=== PATIENT | male | born 1940 | race Caucasian/White ===

== ENCOUNTER 2017-10-20 19:31 | Inpatient (IN) | payer MEDICARE, OTHER ==
[2017-10-20] MEDS: SODIUM CHLORIDE 0.9% 1L BAG IV* (21:16)
[2017-10-20] MEDS: PIPER-TAZO 3.375 GM IV (PMX) 100 ML IVPB (21:17)
[2017-10-20 21:39] LABS: ADD MAN DIFF? NO
[2017-10-20 21:42] LABS: BASOPHILS % 0.3 % (0.0-2.0); HEMATOCRIT 37.1 % (42.0-52.0); HEMOGLOBIN 12.3 g/dl (14.0-18.0); LYMPHOCYTES % 10.9 % (15.0-51.0); MEAN CORPUSCULAR HEMOGLOBIN 32.7 pg (29.0-33.0); MEAN CORPUSCULAR HGB CONC 33.2 g/dl (32.0-37.0); MEAN CORPUSCULAR VOLUME 98.7 fl (82.0-101.0); MEAN PLATELET VOLUME 11.2 fl (7.4-10.4); MONOCYTE # 0.3 10^3/ul (0.3-0.9); MONOCYTES % 3.5 % (0.0-11.0); NEUTROPHIL # 7.8 10^3/ul (1.6-7.5); NEUTROPHILS % 84.9 % (39.0-77.0); PLATELET COUNT 217 10^3/UL (140-415); RED BLOOD COUNT 3.76 10^6/ul (4.70-6.10); RED CELL DISTRIBUTION WIDTH 13.6 % (11.5-14.5)
[2017-10-20 21:42] LABS: WHITE BLOOD COUNT 9.2 10^3/ul (4.8-10.8)
[2017-10-20 21:51] LABS: ADD UMIC NO; UR ASCORBIC ACID 40 mg/dL (NEGATIVE); UR BILIRUBIN (Dip) NEGATIVE (NEGATIVE); UR BLOOD (Dip) NEGATIVE (NEGATIVE); UR CLARITY SLIGHTLY CLOUDY (CLEAR); UR COLOR YELLOW (YELLOW); UR GLUCOSE (Dip) NEGATIVE (NEGATIVE); UR KETONES (Dip) NEGATIVE (NEGATIVE); UR LEUKOCYTE ESTERASE (Dip) NEGATIVE Leu/ul (NEGATIVE); UR NITRITE (Dip) NEGATIVE (NEGATIVE); UR RBC 1 /HPF (0-5); UR SPECIFIC GRAVITY (Dip) 1.018 (1.003-1.030); UR TOTAL PROTEIN (Dip) NEGATIVE (NEGATIVE); UR UROBILINOGEN (Dip) 1+ mg/dL (NEGATIVE); UR WBC 2 /HPF (0-5)
[2017-10-20 21:59] LABS: LACTIC ACID 2.7 mmol/L (0.5-2.0)
[2017-10-20 22:02] LABS: INR 1.08; PROTIME 14.1 Sec (11.9-14.9); PT RATIO 1.1
[2017-10-20] MEDS: ALBUTEROL 0.083% (NEB) 2.5 MG/3 ML AMP NEB (22:02)
[2017-10-20] MEDS: IPRATROPIUM (NEB) 0.5 MG/2.5 ML AMP NEB (22:02)
[2017-10-20 22:03] LABS: PARTIAL THROMBOPLASTIN TIME 27.5 Sec (25.0-35.0)
[2017-10-20 22:23] LABS: ALANINE AMINOTRANSFERASE 100 IU/L (13-69); ALBUMIN 3.7 g/dl (3.3-4.9); ALBUMIN/GLOBULIN RATIO 0.82; ALKALINE PHOSPHATASE 70 IU/L (42-121); AMYLASE 107 U/L (11-123); ANION GAP 16 (8-16); ASPARTATE AMINO TRANSFERASE 90 IU/L (15-46); BILIRUBIN,INDIRECT 0.6 mg/dl (0-1.1); BILIRUBIN,TOTAL 0.6 mg/dl (0.2-1.3); BLOOD UREA NITROGEN 36 mg/dl (7-20); CALCIUM 9.1 mg/dl (8.4-10.2); CARBON DIOXIDE 22 mmol/L (21-31); CHLORIDE 103 mmol/L (97-110); CREATININE 0.74 mg/dl (0.61-1.24); GLUCOSE 127 mg/dl (70-220); LIPASE 76 U/L (23-300); POTASSIUM 4.8 mmol/L (3.5-5.1); SODIUM 136 mmol/L (135-144); TOTAL PROTEIN 8.2 g/dl (6.1-8.1)
[2017-10-20 22:34] LABS: TROPONIN-I 0.022 ng/ml (0.000-0.120)
[2017-10-20] MEDS: VANCOMYCIN 1 GM (PMX) 250 ML IVPB (22:45)
[2017-10-20] MEDS: ACETAMINOPHEN 650 MG SUPP PR (23:28)
[2017-10-20 23:44] LABS: LACTIC ACID 3.1 mmol/L (0.5-2.0)
[2017-10-21 03:48] LABS: LACTIC ACID 4.9 mmol/L (0.5-2.0)
[2017-10-21] MEDS: SOD CHLORIDE 0.9% 1,000 ML IV (04:07)
[2017-10-21] MEDS ORDERED: morphine 2 MG INJ IV (09:30)
[2017-10-21] MEDS ORDERED: LORAZEPAM 2 MG INJ IV (09:30)
[2017-10-21] MEDS ORDERED: NACL 0.9% 3 ML SYG IV (09:30)
[2017-10-21] MEDS ORDERED: ALBUTEROL/IPRATROPIUM (NEB) 3 ML AMP HHN (09:30)
[2017-10-21] MEDS: LEVOFLOXACIN 500MG/D5W (PMX) 100 ML IVPB (09:41)
[2017-10-21] MEDS: DEXTROSE 5%-0.45% NACL 1,000 ML IV ×2 (09:42→22:57)
[2017-10-21] MEDS: FAMOTIDINE 20 MG INJ IV ×2 (09:42→20:14)
[2017-10-21 14:21] LABS: LACTIC ACID 1.2 mmol/L (0.5-2.0)
[2017-10-21] MEDS ORDERED: HEPARIN 5,000 UNIT/0.5 ML VIAL SC (21:00)
[2017-10-21] MEDS: CEFEPIME 1GM/50 ML (PMX) 50 ML IVPB (22:57)
[2017-10-21] MEDS ORDERED: VANCOMYCIN IV PER PHARMACY XX (23:00)
[2017-10-22] MEDS: VANCOMYCIN 1.25 GM in SOD CHLORIDE 0.9% 250 ML IVPB ×2 (06:09→17:52)
[2017-10-22] MEDS: FAMOTIDINE 20 MG INJ IV ×2 (09:26→20:00)
[2017-10-22] MEDS: CEFEPIME 1GM/50 ML (PMX) 50 ML IVPB ×2 (09:26→20:00)
[2017-10-22] MEDS: DEXTROSE 5%-0.45% NACL 1,000 ML IV ×2 (11:43→22:42)
[2017-10-22] MEDS: ACETAMINOPHEN 650MG/20.3ML CUP GTB (23:44)
[2017-10-23] MEDS: VANCOMYCIN 1.25 GM in SOD CHLORIDE 0.9% 250 ML IVPB ×2 (05:35→22:44)
[2017-10-23 06:04] LABS: ADD MAN DIFF? NO
[2017-10-23 06:16] LABS: BASOPHILS % 0.5 % (0.0-2.0); EOSINOPHILS # 0.2 10^3/ul (0.0-0.5); EOSINOPHILS % 2.9 % (0.0-7.0); HEMOGLOBIN 9.9 g/dl (14.0-18.0); LYMPHOCYTES # 1.2 10^3/ul (0.8-2.9); LYMPHOCYTES % 18.2 % (15.0-51.0); MEAN CORPUSCULAR HEMOGLOBIN 33.4 pg (29.0-33.0); MEAN CORPUSCULAR VOLUME 101.4 fl (82.0-101.0); MEAN PLATELET VOLUME 11.1 fl (7.4-10.4); MONOCYTE # 0.6 10^3/ul (0.3-0.9); MONOCYTES % 9.5 % (0.0-11.0); NEUTROPHIL # 4.5 10^3/ul (1.6-7.5); NEUTROPHILS % 68.4 % (39.0-77.0); PLATELET COUNT 141 10^3/UL (140-415); RED BLOOD COUNT 2.96 10^6/ul (4.70-6.10); RED CELL DISTRIBUTION WIDTH 12.9 % (11.5-14.5)
[2017-10-23 06:16] LABS: WHITE BLOOD COUNT 6.5 10^3/ul (4.8-10.8)
[2017-10-23 06:49] LABS: ANION GAP 9 (8-16); BLOOD UREA NITROGEN 23 mg/dl (7-20); CALCIUM 8.3 mg/dl (8.4-10.2); CARBON DIOXIDE 25 mmol/L (21-31); CHLORIDE 112 mmol/L (97-110); CREATININE 0.69 mg/dl (0.61-1.24); GLUCOSE 98 mg/dl (70-220); MAGNESIUM 1.9 mg/dl (1.7-2.5); PHOSPHORUS 2.4 mg/dl (2.5-4.9); POTASSIUM 3.7 mmol/L (3.5-5.1); SODIUM 142 mmol/L (135-144)
[2017-10-23] MEDS: FAMOTIDINE 20 MG INJ IV ×2 (08:31→20:09)
[2017-10-23] MEDS: CEFEPIME 1GM/50 ML (PMX) 50 ML IVPB ×2 (08:31→20:09)
[2017-10-23] MEDS: ENOXAPARIN 40 MG/0.4 ML SYG SC (09:27)
[2017-10-23] MEDS: DEXTROSE 5%-0.45% NACL 1,000 ML IV (14:47)
[2017-10-23] MEDS ORDERED: morphine LIQ (10 MG/5 ML) CUP GTB (15:00)
[2017-10-24] MEDS: DEXTROSE 5%-0.45% NACL 1,000 ML IV ×2 (03:43→06:32)
[2017-10-24] MEDS: VANCOMYCIN 1.25 GM in SOD CHLORIDE 0.9% 250 ML IVPB ×2 (07:39→17:36)
[2017-10-24] MEDS: FAMOTIDINE 20 MG INJ IV (08:00)
[2017-10-24] MEDS: CEFEPIME 1GM/50 ML (PMX) 50 ML IVPB ×2 (08:00→20:10)
[2017-10-24] MEDS: ENOXAPARIN 40 MG/0.4 ML SYG SC (08:15)
[2017-10-25] MEDS: VANCOMYCIN 1.25 GM in SOD CHLORIDE 0.9% 250 ML IVPB ×2 (06:30→17:53)
[2017-10-25] MEDS: CEFEPIME 1GM/50 ML (PMX) 50 ML IVPB ×2 (08:39→20:02)
[2017-10-25] MEDS: ENOXAPARIN 40 MG/0.4 ML SYG SC (08:46)
[2017-10-25] MEDS: BALSAM PERU/CASTOR OIL 60 GM TUBE TOP (20:05)
[2017-10-26] MEDS: VANCOMYCIN 1.25 GM in SOD CHLORIDE 0.9% 250 ML IVPB (05:18)
[2017-10-26] MEDS: CEFEPIME 1GM/50 ML (PMX) 50 ML IVPB (08:22)
[2017-10-26] MEDS: BALSAM PERU/CASTOR OIL 60 GM TUBE TOP (08:26)
[2017-10-26] MEDS: ENOXAPARIN 40 MG/0.4 ML SYG SC (08:42)
== END 2017-10-26 16:09 | DRG 871 ==
LOC: E/R 19:31 → TEL 10-21 03:57
PROVIDERS: Internal Medicine
DX: A41.9 Sepsis, unspecified organism (principal); J18.9 Pneumonia, unspecified organism; G93.41 Metabolic encephalopathy; J96.01 Acute respiratory failure with hypoxia; N39.0 Urinary tract infection, site not specified; I10 Essential (primary) hypertension; E78.5 Hyperlipidemia, unspecified; K21.9 Gastro-esophageal reflux disease without esophagitis; I25.10 Atherosclerotic heart disease of native coronary artery without angina pectoris; F03.90 Unspecified dementia, unspecified severity, without behavioral disturbance, psychotic disturbance, mood disturbance, and anxiety; B96.20 Unspecified Escherichia coli [E. coli] as the cause of diseases classified elsewhere; Z66 Do not resuscitate
CPT/HCPCS: 71045; 80048; 80053; 80202; 81001; 81003; 82150; 83605; 83690; 83735; 84100; 84484; 85025; 85610; 85730; 86850; 86900; 86901; 87040; 87081; 87086; 93005; 94664; 96365; 96375; 97164; 99291-25

== ENCOUNTER → 2017-12-07 | Outpatient (CLI) | payer MEDICARE, OTHER | END | disposition home or self-care (01) | LOC: NUC 10:13 | DX: K80.80 Other cholelithiasis without obstruction (principal) | CPT/HCPCS: 78226 ==

== ENCOUNTER 2018-05-16 14:36 | Inpatient (IN) | payer MEDICARE, OTHER ==
[2018-05-16 15:08] LABS: ADD MAN DIFF? NO
[2018-05-16 15:30] LABS: WHITE BLOOD COUNT 15.2 10^3/ul (4.8-10.8)
[2018-05-16 15:30] LABS: BASOPHILS % 0.2 % (0.0-2.0); EOSINOPHILS % 0.1 % (0.0-7.0); HEMATOCRIT 31.9 % (42.0-52.0); HEMOGLOBIN 10.2 g/dl (14.0-18.0); LYMPHOCYTES # 1.5 10^3/ul (0.8-2.9); LYMPHOCYTES % 9.7 % (15.0-51.0); MEAN CORPUSCULAR HEMOGLOBIN 31.9 pg (29.0-33.0); MEAN CORPUSCULAR VOLUME 99.7 fl (82.0-101.0); MEAN PLATELET VOLUME 11.5 fl (7.4-10.4); MONOCYTE # 1.3 10^3/ul (0.3-0.9); MONOCYTES % 8.6 % (0.0-11.0); NEUTROPHIL # 12.3 10^3/ul (1.6-7.5); NEUTROPHILS % 80.9 % (39.0-77.0); PLATELET COUNT 379 10^3/UL (140-415); RED CELL DISTRIBUTION WIDTH 13.1 % (11.5-14.5)
[2018-05-16 15:34] LABS: ALANINE AMINOTRANSFERASE 30 IU/L (13-69); ALBUMIN 3.2 g/dl (3.3-4.9); ALBUMIN/GLOBULIN RATIO 0.88; ALKALINE PHOSPHATASE 93 IU/L (42-121); ANION GAP 12 (5-13); ASPARTATE AMINO TRANSFERASE 28 IU/L (15-46); BILIRUBIN,INDIRECT 0.3 mg/dl (0-1.1); BILIRUBIN,TOTAL 0.3 mg/dl (0.2-1.3); BLOOD UREA NITROGEN 32 mg/dl (7-20); CALCIUM 8.7 mg/dl (8.4-10.2); CARBON DIOXIDE 26 mmol/L (21-31); CHLORIDE 102 mmol/L (97-110); CREATININE 0.65 mg/dl (0.61-1.24); GLUCOSE 145 mg/dl (70-220); INR 1.07; MAGNESIUM 2.4 mg/dl (1.7-2.5); PARTIAL THROMBOPLASTIN TIME 30.2 Sec (23.0-35.0); POTASSIUM 4.4 mmol/L (3.5-5.1); PT RATIO 1.1; SODIUM 140 mmol/L (135-144); TOTAL PROTEIN 6.8 g/dl (6.1-8.1)
[2018-05-16] MEDS: SODIUM CHLORIDE 0.9% 1L BAG IV* (15:36)
[2018-05-16 15:37] LABS: ADD UMIC YES; UR ASCORBIC ACID 40 mg/dL (NEGATIVE); UR BILIRUBIN (Dip) NEGATIVE (NEGATIVE); UR BLOOD (Dip) NEGATIVE (NEGATIVE); UR CLARITY SLIGHTLY CLOUDY (CLEAR); UR COLOR YELLOW (YELLOW); UR GLUCOSE (Dip) NEGATIVE (NEGATIVE); UR KETONES (Dip) NEGATIVE (NEGATIVE); UR LEUKOCYTE ESTERASE (Dip) NEGATIVE Leu/ul (NEGATIVE); UR MUCUS FEW /HPF (NONE SEEN); UR NITRITE (Dip) NEGATIVE (NEGATIVE); UR RBC 0 /HPF (0-5); UR SPECIFIC GRAVITY (Dip) 1.023 (1.003-1.030); UR TOTAL PROTEIN (Dip) 1+ mg/dl (NEGATIVE); UR UROBILINOGEN (Dip) NEGATIVE (NEGATIVE); UR WBC 0 /HPF (0-5)
[2018-05-16] MEDS: PIPER-TAZO 3.375 GM IV (PMX) 100 ML IVPB (15:38)
[2018-05-16] MEDS: LIDOCAINE 1% (MPF) 5 ML VIAL SC (15:43)
[2018-05-16 15:45] LABS: TROPONIN-I < 0.012 ng/ml (0.000-0.120)
[2018-05-16] MEDS: VANCOMYCIN 1 GM (PMX) 250 ML IVPB (17:18)
[2018-05-16] MEDS ORDERED: ZOLPIDEM 5 MG TAB PO (18:00)
[2018-05-16] MEDS ORDERED: HYDROmorphONE 0.5 MG/0.5 ML SYG IV (18:00)
[2018-05-16] MEDS ORDERED: ACETAMINOPHEN 325 MG TAB PO (18:00)
[2018-05-16] MEDS ORDERED: ONDANSETRON 4 MG INJ IV (18:00)
[2018-05-16] MEDS ORDERED: HYDROCODONE/APAP (5/325) TAB PO (18:00)
[2018-05-16] MEDS ORDERED: DOCUSATE SODIUM 100 MG CAP PO (18:00)
[2018-05-16] MEDS ORDERED: NACL 0.9% 3 ML SYG IV (18:00)
[2018-05-16] MEDS: DILTIAZEM 25 MG INJ IV (18:20)
[2018-05-16] MEDS ORDERED: ACETAMINOPHEN 650MG/20.3ML CUP GTB (18:30)
[2018-05-16] MEDS ORDERED: VANCOMYCIN IV PER PHARMACY XX (18:30)
[2018-05-16 19:33] LABS: LACTIC ACID 3.2 mmol/L (0.5-2.0)
[2018-05-16] MEDS: D5W-0.45 NACL + KCL 20 MEQ 1,000 ML IV (19:41)
[2018-05-16] MEDS ORDERED: NON-FORMULARY/PATIENT OWN MED (Arginine/Ascorbate Sod/Vite AC (Arginaid Powder) 1 EACH) GTB (21:00)
[2018-05-16] MEDS: ASCORBIC ACID 500 MG TAB GTB (21:45)
[2018-05-16 22:07] LABS: LACTIC ACID 1.5 mmol/L (0.5-2.0)
[2018-05-17] MEDS: PIPER-TAZO 3.375 GM IV (PMX) 100 ML IVPB ×4 (00:20→18:14)
[2018-05-17 00:31] LABS: LACTIC ACID 1.8 mmol/L (0.5-2.0)
[2018-05-17] MEDS: VANCOMYCIN 1 GM 250 ML IVPB ×2 (03:28→16:07)
[2018-05-17] MEDS: D5W-0.45 NACL + KCL 20 MEQ 1,000 ML IV ×3 (03:29→13:26)
[2018-05-17 05:19] LABS: ADD MAN DIFF? NO
[2018-05-17 05:24] LABS: WHITE BLOOD COUNT 9.4 10^3/ul (4.8-10.8)
[2018-05-17 05:24] LABS: BASOPHILS % 0.3 % (0.0-2.0); EOSINOPHILS # 0.2 10^3/ul (0.0-0.5); EOSINOPHILS % 1.7 % (0.0-7.0); HEMATOCRIT 26.5 % (42.0-52.0); HEMOGLOBIN 8.5 g/dl (14.0-18.0); LYMPHOCYTES # 1.1 10^3/ul (0.8-2.9); LYMPHOCYTES % 11.9 % (15.0-51.0); MEAN CORPUSCULAR HEMOGLOBIN 31.7 pg (29.0-33.0); MEAN CORPUSCULAR HGB CONC 32.1 g/dl (32.0-37.0); MEAN CORPUSCULAR VOLUME 98.9 fl (82.0-101.0); MEAN PLATELET VOLUME 10.9 fl (7.4-10.4); MONOCYTE # 0.9 10^3/ul (0.3-0.9); MONOCYTES % 9.8 % (0.0-11.0); NEUTROPHIL # 7.1 10^3/ul (1.6-7.5); NEUTROPHILS % 75.9 % (39.0-77.0); PLATELET COUNT 324 10^3/UL (140-415); RED BLOOD COUNT 2.68 10^6/ul (4.70-6.10); RED CELL DISTRIBUTION WIDTH 13.2 % (11.5-14.5)
[2018-05-17 05:53] LABS: ANION GAP 8 (5-13); BLOOD UREA NITROGEN 22 mg/dl (7-20); CALCIUM 8.2 mg/dl (8.4-10.2); CARBON DIOXIDE 24 mmol/L (21-31); CHLORIDE 109 mmol/L (97-110); CREATININE 0.63 mg/dl (0.61-1.24); GLUCOSE 107 mg/dl (70-220); MAGNESIUM 2.2 mg/dl (1.7-2.5); PHOSPHORUS 2.6 mg/dl (2.5-4.9); POTASSIUM 4.1 mmol/L (3.5-5.1); SODIUM 141 mmol/L (135-144)
[2018-05-17 06:51] LABS: HEMOGLOBIN A1C 5.5 % (0-5.9)
[2018-05-17] MEDS: FERROUS SULFATE 220 MG/5 ML ML GTB (09:00)
[2018-05-17] MEDS: FUROSEMIDE 40 MG/4 ML CUP GTB (09:00)
[2018-05-17] MEDS: ASCORBIC ACID 500 MG TAB GTB ×2 (10:06→20:40)
[2018-05-17] MEDS: ZINC SULFATE 220 MG CAP GTB (10:06)
[2018-05-17] MEDS: MULTIVITAMINS/MINERALS TAB GTB (10:06)
[2018-05-17] MEDS ORDERED: LEVALBUTEROL (NEB) 0.63 MG/3 ML AMP HHN (10:30)
[2018-05-17] MEDS ORDERED: ALBUTEROL/IPRATROPIUM (NEB) 3 ML AMP HHN ×2 (10:30)
[2018-05-17] MEDS: LEVALBUTEROL (NEB) 0.63 MG/3 ML AMP HHN (10:54)
[2018-05-17] MEDS: DILTIAZEM-D5W 125MG/125ML DRIP 125 ML IV ×4 (11:22→17:51)
[2018-05-17] MEDS: DILTIAZEM 25 MG INJ IV (11:22)
[2018-05-17] MEDS ORDERED: FUROSEMIDE 40 MG/4 ML CUP GTB (13:00)
[2018-05-17] MEDS: FERROUS SULFATE 60 MG/ML 5ML CUP GTB (13:23)
[2018-05-17] MEDS: METHYLPREDNISOLONE 40 MG INJ IV ×2 (13:23→20:40)
[2018-05-17 15:11] LABS: TROPONIN-I < 0.012 ng/ml (0.000-0.120)
[2018-05-17] MEDS: FUROSEMIDE (8 MG/ML PO SYG) GTB (16:07)
[2018-05-17] MEDS: DIGOXIN 500 MCG INJ IV ×2 (16:19→22:29)
[2018-05-17] MEDS: COLLAGENASE 5 GM (UD JAR) TOP (20:47)
[2018-05-17] MEDS ORDERED: DILTIAZEM 25 MG INJ IV (22:30)
[2018-05-17] MEDS: AMIODARONE 150MG/D5W BOLUS 100 ML IV (22:58)
[2018-05-17] MEDS: AMIODARONE 900 MG in DEXTROSE 5% 482 ML IV (23:15)
[2018-05-18] MEDS: D5W-0.45 NACL + KCL 20 MEQ 1,000 ML IV ×4 (00:44→22:03)
[2018-05-18] MEDS: PIPER-TAZO 3.375 GM IV (PMX) 100 ML IVPB ×5 (00:44→23:19)
[2018-05-18] MEDS: ALBUTEROL/IPRATROPIUM (NEB) 3 ML AMP HHN ×2 (01:07→10:19)
[2018-05-18] MEDS: VANCOMYCIN 1 GM 250 ML IVPB (04:27)
[2018-05-18 06:03] LABS: CREATINE KINASE 51 IU/L (23-200)
[2018-05-18 06:16] LABS: ANION GAP 11 (5-13); BLOOD UREA NITROGEN 18 mg/dl (7-20); CALCIUM 8.7 mg/dl (8.4-10.2); CARBON DIOXIDE 24 mmol/L (21-31); CHLORIDE 106 mmol/L (97-110); CREATININE 0.59 mg/dl (0.61-1.24); GLUCOSE 192 mg/dl (70-220); MAGNESIUM 2.2 mg/dl (1.7-2.5); PHOSPHORUS 2.8 mg/dl (2.5-4.9); POTASSIUM 4.4 mmol/L (3.5-5.1); SODIUM 141 mmol/L (135-144); TROPONIN-I < 0.012 ng/ml (0.000-0.120)
[2018-05-18 06:17] LABS: B-TYPE NATRIURETIC PEPTIDE 8270 PG/ML (0-450)
[2018-05-18 06:49] LABS: CK INDEX 4.4; CK-MB 2.22 ng/ml (0.0-2.4)
[2018-05-18] MEDS: METHYLPREDNISOLONE 40 MG INJ IV ×3 (07:05→21:50)
[2018-05-18] MEDS: ZINC SULFATE 220 MG CAP GTB (08:21)
[2018-05-18] MEDS: FERROUS SULFATE 60 MG/ML 5ML CUP GTB (08:21)
[2018-05-18] MEDS: ASPIRIN (EC) 81 MG TAB PO (08:21)
[2018-05-18] MEDS: ASCORBIC ACID 500 MG TAB GTB ×2 (08:21→21:50)
[2018-05-18] MEDS: COLLAGENASE 5 GM (UD JAR) TOP (08:21)
[2018-05-18] MEDS: MULTIVITAMINS/MINERALS TAB GTB (08:21)
[2018-05-18] MEDS: FUROSEMIDE (8 MG/ML PO SYG) GTB (08:25)
[2018-05-18] MEDS: FUROSEMIDE 40 MG INJ IV (11:41)
[2018-05-18 15:54] LABS: VANCOMYCIN,TROUGH 22.3 ug/ml (10.0-20.0)
[2018-05-18] MEDS: DIGOXIN 500 MCG INJ IV (20:32)
[2018-05-18] MEDS: FUROSEMIDE 20 MG INJ IV (20:32)
[2018-05-18] MEDS: DILTIAZEM 30 MG TAB GTB (21:50)
[2018-05-19] MEDS: VANCOMYCIN 1.25 GM in SOD CHLORIDE 0.9% 250 ML IVPB ×2 (00:41→23:37)
[2018-05-19] MEDS: PIPER-TAZO 3.375 GM IV (PMX) 100 ML IVPB ×4 (05:46→23:37)
[2018-05-19] MEDS: METHYLPREDNISOLONE 40 MG INJ IV (05:46)
[2018-05-19] MEDS: DILTIAZEM 30 MG TAB GTB ×3 (05:47→22:01)
[2018-05-19 06:13] LABS: ADD MAN DIFF? NO
[2018-05-19 06:21] LABS: HEMOGLOBIN 8.9 g/dl (14.0-18.0); LYMPHOCYTES # 0.8 10^3/ul (0.8-2.9); LYMPHOCYTES % 8.2 % (15.0-51.0); MEAN CORPUSCULAR HEMOGLOBIN 31.8 pg (29.0-33.0); MEAN CORPUSCULAR HGB CONC 31.8 g/dl (32.0-37.0); MEAN PLATELET VOLUME 10.5 fl (7.4-10.4); MONOCYTE # 0.4 10^3/ul (0.3-0.9); MONOCYTES % 3.8 % (0.0-11.0); NEUTROPHIL # 8.6 10^3/ul (1.6-7.5); NEUTROPHILS % 87.4 % (39.0-77.0); PLATELET COUNT 377 10^3/UL (140-415); RED CELL DISTRIBUTION WIDTH 12.9 % (11.5-14.5)
[2018-05-19 06:21] LABS: WHITE BLOOD COUNT 9.9 10^3/ul (4.8-10.8)
[2018-05-19 06:56] LABS: DIGOXIN 0.8 ng/ml (1.0-2.0)
[2018-05-19 07:04] LABS: ANION GAP 11 (5-13); BLOOD UREA NITROGEN 24 mg/dl (7-20); CALCIUM 8.7 mg/dl (8.4-10.2); CARBON DIOXIDE 26 mmol/L (21-31); CHLORIDE 106 mmol/L (97-110); CREATININE 0.74 mg/dl (0.61-1.24); GLUCOSE 147 mg/dl (70-220); MAGNESIUM 2.2 mg/dl (1.7-2.5); PHOSPHORUS 3.8 mg/dl (2.5-4.9); POTASSIUM 3.8 mmol/L (3.5-5.1); SODIUM 143 mmol/L (135-144)
[2018-05-19] MEDS: ASCORBIC ACID 500 MG TAB GTB ×2 (08:55→20:15)
[2018-05-19] MEDS: MULTIVITAMINS/MINERALS TAB GTB (08:55)
[2018-05-19] MEDS: ZINC SULFATE 220 MG CAP GTB (08:55)
[2018-05-19] MEDS: FERROUS SULFATE 60 MG/ML 5ML CUP GTB (08:55)
[2018-05-19] MEDS: ASPIRIN (EC) 81 MG TAB PO (08:56)
[2018-05-19] MEDS: FUROSEMIDE 20 MG INJ IV (09:34)
[2018-05-19] MEDS: COLLAGENASE 5 GM (UD JAR) TOP (09:34)
[2018-05-19] MEDS: DIGOXIN 500 MCG INJ IV (12:41)
[2018-05-20] MEDS: DILTIAZEM 30 MG TAB GTB ×3 (05:26→22:24)
[2018-05-20] MEDS: PIPER-TAZO 3.375 GM IV (PMX) 100 ML IVPB ×4 (05:26→23:39)
[2018-05-20 05:58] LABS: ADD MAN DIFF? NO
[2018-05-20 06:10] LABS: WHITE BLOOD COUNT 10.5 10^3/ul (4.8-10.8)
[2018-05-20 06:10] LABS: BASOPHILS % 0.1 % (0.0-2.0); HEMATOCRIT 27.7 % (42.0-52.0); LYMPHOCYTES # 1.1 10^3/ul (0.8-2.9); LYMPHOCYTES % 10.6 % (15.0-51.0); MEAN CORPUSCULAR HGB CONC 32.5 g/dl (32.0-37.0); MEAN CORPUSCULAR VOLUME 98.6 fl (82.0-101.0); MEAN PLATELET VOLUME 10.3 fl (7.4-10.4); MONOCYTES % 9.3 % (0.0-11.0); NEUTROPHIL # 8.3 10^3/ul (1.6-7.5); NEUTROPHILS % 79.2 % (39.0-77.0); PLATELET COUNT 370 10^3/UL (140-415); RED BLOOD COUNT 2.81 10^6/ul (4.70-6.10)
[2018-05-20 06:36] LABS: DIGOXIN 0.6 ng/ml (1.0-2.0)
[2018-05-20 06:42] LABS: ALANINE AMINOTRANSFERASE 63 IU/L (13-69); ALBUMIN 2.6 g/dl (3.3-4.9); ALBUMIN/GLOBULIN RATIO 0.74; ALKALINE PHOSPHATASE 89 IU/L (42-121); ANION GAP 8 (5-13); ASPARTATE AMINO TRANSFERASE 46 IU/L (15-46); BILIRUBIN,INDIRECT 0.1 mg/dl (0-1.1); BILIRUBIN,TOTAL 0.1 mg/dl (0.2-1.3); BLOOD UREA NITROGEN 34 mg/dl (7-20); CALCIUM 8.5 mg/dl (8.4-10.2); CARBON DIOXIDE 27 mmol/L (21-31); CHLORIDE 108 mmol/L (97-110); CREATININE 0.79 mg/dl (0.61-1.24); GLUCOSE 151 mg/dl (70-220); POTASSIUM 3.8 mmol/L (3.5-5.1); SODIUM 143 mmol/L (135-144); TOTAL PROTEIN 6.1 g/dl (6.1-8.1)
[2018-05-20 06:44] LABS: B-TYPE NATRIURETIC PEPTIDE 15000 PG/ML (0-450)
[2018-05-20 07:11] LABS: MAGNESIUM 2.2 mg/dl (1.7-2.5)
[2018-05-20 07:11] LABS: PHOSPHORUS 3.1 mg/dl (2.5-4.9)
[2018-05-20] MEDS: FUROSEMIDE 20 MG INJ IV ×3 (08:41→17:07)
[2018-05-20] MEDS: ASPIRIN (EC) 81 MG TAB PO (08:41)
[2018-05-20] MEDS: ASCORBIC ACID 500 MG TAB GTB ×2 (08:41→20:25)
[2018-05-20] MEDS: ZINC SULFATE 220 MG CAP GTB (08:41)
[2018-05-20] MEDS: COLLAGENASE 5 GM (UD JAR) TOP (08:41)
[2018-05-20] MEDS: FERROUS SULFATE 60 MG/ML 5ML CUP GTB (08:41)
[2018-05-20] MEDS: MULTIVITAMINS/MINERALS TAB GTB (08:41)
[2018-05-20] MEDS: DIGOXIN 500 MCG INJ IV (14:15)
[2018-05-20] MEDS: VANCOMYCIN 1.25 GM in SOD CHLORIDE 0.9% 250 ML IVPB (23:30)
[2018-05-21] MEDS ORDERED: VITAMIN A & D 5 GM OINT PACKET TOP (05:14)
[2018-05-21 05:22] LABS: ADD MAN DIFF? NO
[2018-05-21] MEDS: DILTIAZEM 30 MG TAB GTB ×3 (05:24→22:00)
[2018-05-21] MEDS: PIPER-TAZO 3.375 GM IV (PMX) 100 ML IVPB ×3 (05:25→18:09)
[2018-05-21] MEDS: DOCUSATE SODIUM 10 MG/ML (10ML CUP) GTB (05:25)
[2018-05-21] MEDS: LANSOPRAZOLE 30 MG CAP GTB (05:25)
[2018-05-21] MEDS: FUROSEMIDE 20 MG INJ IV ×2 (05:26→18:07)
[2018-05-21 05:41] LABS: BASOPHILS % 0.1 % (0.0-2.0); EOSINOPHILS % 0.4 % (0.0-7.0); HEMATOCRIT 32.4 % (42.0-52.0); HEMOGLOBIN 10.5 g/dl (14.0-18.0); LYMPHOCYTES # 1.9 10^3/ul (0.8-2.9); LYMPHOCYTES % 18.8 % (15.0-51.0); MEAN CORPUSCULAR HEMOGLOBIN 31.4 pg (29.0-33.0); MEAN CORPUSCULAR HGB CONC 32.4 g/dl (32.0-37.0); MONOCYTE # 0.9 10^3/ul (0.3-0.9); MONOCYTES % 8.4 % (0.0-11.0); NEUTROPHIL # 7.3 10^3/ul (1.6-7.5); NEUTROPHILS % 71.3 % (39.0-77.0); NUCLEATED RED BLOOD CELLS% 0.2 /100WBC (0.0-0.0); PLATELET COUNT 414 10^3/UL (140-415); RED BLOOD COUNT 3.34 10^6/ul (4.70-6.10); RED CELL DISTRIBUTION WIDTH 12.8 % (11.5-14.5)
[2018-05-21 05:41] LABS: WHITE BLOOD COUNT 10.3 10^3/ul (4.8-10.8)
[2018-05-21 06:10] LABS: ALANINE AMINOTRANSFERASE 94 IU/L (13-69); ALBUMIN 2.8 g/dl (3.3-4.9); ALBUMIN/GLOBULIN RATIO 0.84; ALKALINE PHOSPHATASE 89 IU/L (42-121); ANION GAP 10 (5-13); ASPARTATE AMINO TRANSFERASE 58 IU/L (15-46); BLOOD UREA NITROGEN 32 mg/dl (7-20); CALCIUM 8.5 mg/dl (8.4-10.2); CARBON DIOXIDE 30 mmol/L (21-31); CHLORIDE 102 mmol/L (97-110); CREATININE 0.76 mg/dl (0.61-1.24); GLUCOSE 119 mg/dl (70-220); POTASSIUM 3.3 mmol/L (3.5-5.1); SODIUM 142 mmol/L (135-144); TOTAL PROTEIN 6.1 g/dl (6.1-8.1)
[2018-05-21 06:13] LABS: B-TYPE NATRIURETIC PEPTIDE 9650 PG/ML (0-450)
[2018-05-21 07:13] LABS: PHOSPHORUS 2.8 mg/dl (2.5-4.9)
[2018-05-21 07:13] LABS: MAGNESIUM 2.1 mg/dl (1.7-2.5)
[2018-05-21] MEDS: ZINC SULFATE 220 MG CAP GTB (09:00)
[2018-05-21] MEDS: FERROUS SULFATE 60 MG/ML 5ML CUP GTB (09:00)
[2018-05-21] MEDS: ASPIRIN (EC) 81 MG TAB PO (09:00)
[2018-05-21] MEDS: MULTIVITAMINS/MINERALS TAB GTB (09:00)
[2018-05-21] MEDS: ASCORBIC ACID 500 MG TAB GTB ×2 (09:00→21:03)
[2018-05-21] MEDS ORDERED: POTASSIUM CHLORIDE (SR) 20 MEQ TAB PO (09:03)
[2018-05-21] MEDS: COLLAGENASE 5 GM (UD JAR) TOP (09:04)
[2018-05-21] MEDS: POTASSIUM CHLORIDE 100 ML IVPB ×2 (10:35→13:15)
[2018-05-21] MEDS: DIGOXIN 500 MCG INJ IV (14:15)
[2018-05-21 23:42] LABS: VANCOMYCIN,TROUGH 17.2 ug/ml (10.0-20.0)
[2018-05-22] MEDS: PIPER-TAZO 3.375 GM IV (PMX) 100 ML IVPB ×4 (00:16→18:24)
[2018-05-22] MEDS: LANSOPRAZOLE 30 MG CAP GTB (05:13)
[2018-05-22] MEDS: FUROSEMIDE 20 MG INJ IV ×2 (05:13→18:23)
[2018-05-22] MEDS: DILTIAZEM 30 MG TAB GTB ×3 (05:14→22:43)
[2018-05-22 05:40] LABS: ADD MAN DIFF? NO
[2018-05-22 05:50] LABS: BASOPHILS % 0.1 % (0.0-2.0); EOSINOPHILS # 0.4 10^3/ul (0.0-0.5); EOSINOPHILS % 3.6 % (0.0-7.0); HEMATOCRIT 32.4 % (42.0-52.0); HEMOGLOBIN 10.7 g/dl (14.0-18.0); LYMPHOCYTES % 20.6 % (15.0-51.0); MEAN CORPUSCULAR HEMOGLOBIN 31.8 pg (29.0-33.0); MEAN CORPUSCULAR VOLUME 96.1 fl (82.0-101.0); MEAN PLATELET VOLUME 9.8 fl (7.4-10.4); MONOCYTE # 0.7 10^3/ul (0.3-0.9); MONOCYTES % 7.2 % (0.0-11.0); NEUTROPHIL # 6.5 10^3/ul (1.6-7.5); NUCLEATED RED BLOOD CELLS% 0.2 /100WBC (0.0-0.0); PLATELET COUNT 419 10^3/UL (140-415); RED BLOOD COUNT 3.37 10^6/ul (4.70-6.10)
[2018-05-22 05:50] LABS: WHITE BLOOD COUNT 9.6 10^3/ul (4.8-10.8)
[2018-05-22 06:25] LABS: ANION GAP 11 (5-13); BLOOD UREA NITROGEN 28 mg/dl (7-20); CALCIUM 8.4 mg/dl (8.4-10.2); CARBON DIOXIDE 26 mmol/L (21-31); CHLORIDE 103 mmol/L (97-110); CREATININE 0.81 mg/dl (0.61-1.24); GLUCOSE 95 mg/dl (70-220); MAGNESIUM 2.1 mg/dl (1.7-2.5); PHOSPHORUS 3.2 mg/dl (2.5-4.9); POTASSIUM 3.7 mmol/L (3.5-5.1); SODIUM 140 mmol/L (135-144)
[2018-05-22] MEDS: ASPIRIN (EC) 81 MG TAB PO (09:27)
[2018-05-22] MEDS: ZINC SULFATE 220 MG CAP GTB (09:27)
[2018-05-22] MEDS: FERROUS SULFATE 60 MG/ML 5ML CUP GTB (09:27)
[2018-05-22] MEDS: ASCORBIC ACID 500 MG TAB GTB ×2 (09:27→22:38)
[2018-05-22] MEDS: COLLAGENASE 5 GM (UD JAR) TOP (09:27)
[2018-05-22] MEDS: MULTIVITAMINS/MINERALS TAB GTB (09:27)
[2018-05-22] MEDS: DIGOXIN 500 MCG INJ IV (13:43)
[2018-05-23] MEDS: PIPER-TAZO 3.375 GM IV (PMX) 100 ML IVPB ×4 (00:36→17:12)
[2018-05-23] MEDS: LANSOPRAZOLE 30 MG CAP GTB (05:55)
[2018-05-23] MEDS: DILTIAZEM 30 MG TAB GTB ×2 (05:57→14:00)
[2018-05-23] MEDS: FUROSEMIDE 20 MG INJ IV (05:58)
[2018-05-23 06:03] LABS: ANION GAP 11 (5-13); BLOOD UREA NITROGEN 26 mg/dl (7-20); CALCIUM 8.4 mg/dl (8.4-10.2); CARBON DIOXIDE 25 mmol/L (21-31); CHLORIDE 102 mmol/L (97-110); CREATININE 0.85 mg/dl (0.61-1.24); GLUCOSE 101 mg/dl (70-220); MAGNESIUM 2.2 mg/dl (1.7-2.5); PHOSPHORUS 3.3 mg/dl (2.5-4.9); POTASSIUM 3.6 mmol/L (3.5-5.1); SODIUM 138 mmol/L (135-144)
[2018-05-23 06:12] LABS: DIGOXIN 0.8 ng/ml (1.0-2.0)
[2018-05-23] MEDS: SPIRONOLACTONE 25 MG TAB PO (09:10)
[2018-05-23] MEDS: MULTIVITAMINS/MINERALS TAB GTB (09:10)
[2018-05-23] MEDS: APIXABAN 5 MG TABLET PO (09:10)
[2018-05-23] MEDS: ASCORBIC ACID 500 MG TAB GTB (09:10)
[2018-05-23] MEDS: ZINC SULFATE 220 MG CAP GTB (09:10)
[2018-05-23] MEDS: FERROUS SULFATE 60 MG/ML 5ML CUP GTB (09:11)
[2018-05-23] MEDS: COLLAGENASE 5 GM (UD JAR) TOP (09:11)
[2018-05-23] MEDS: BACITRACIN/POLYMYXIN 28.35 GM OINT TOP (09:11)
[2018-05-23] MEDS: DIGOXIN 500 MCG INJ IV (14:03)
[2018-05-24] MEDS ORDERED: FUROSEMIDE 20 MG INJ IV (09:00)
== END 2018-05-23 20:06 | DRG 871 ==
LOC: E/R 14:36 → 6WM 17:32
PROC: 02HV33Z Insertion of Infusion Device into Superior Vena Cava, Percutaneous Approach (ICD-10-PCS; principal; 2018-05-16)
PROC: B548ZZA Ultrasonography of Superior Vena Cava, Guidance (ICD-10-PCS; 2018-05-16)
DX: A41.9 Sepsis, unspecified organism (principal); L89.523 Pressure ulcer of left ankle, stage 3; L89.513 Pressure ulcer of right ankle, stage 3; J18.9 Pneumonia, unspecified organism; J96.01 Acute respiratory failure with hypoxia; I50.33 Acute on chronic diastolic (congestive) heart failure; G93.40 Encephalopathy, unspecified; J44.1 Chronic obstructive pulmonary disease with (acute) exacerbation; J44.0 Chronic obstructive pulmonary disease with (acute) lower respiratory infection; I25.10 Atherosclerotic heart disease of native coronary artery without angina pectoris; I48.91 Unspecified atrial fibrillation; I11.0 Hypertensive heart disease with heart failure; D63.8 Anemia in other chronic diseases classified elsewhere; G30.9 Alzheimer's disease, unspecified; F02.80 Dementia in other diseases classified elsewhere, unspecified severity, without behavioral disturbance, psychotic disturbance, mood disturbance, and anxiety; E87.5 Hyperkalemia; R13.10 Dysphagia, unspecified; K94.29 Other complications of gastrostomy; R74.0 Nonspecific elevation of levels of transaminase and lactic acid dehydrogenase [LDH]
CPT/HCPCS: 36569; 71045; 76937; 80048; 80053; 80162; 80202; 81001; 82550; 82553; 83036; 83605; 83735; 83880; 84100; 84443; 84484; 85025; 85610; 85730; 87040; 87081; 87086; 93005; 93306; 93308; 94640; 94664; 96365; 96366; 96375; 99291-25

== ENCOUNTER 2018-06-14 09:43 | Inpatient (IN) | payer MEDICARE, OTHER ==
[2018-06-14] MEDS: PIPER-TAZO 3.375 GM IV (PMX) 100 ML IVPB (10:30)
[2018-06-14] MEDS: SODIUM CHLORIDE 0.9% 1L BAG IV* (10:30)
[2018-06-14 10:32] LABS: ADD MAN DIFF? NO
[2018-06-14 10:43] LABS: BASOPHIL # 0.1 10^3/ul (0.0-0.1); BASOPHILS % 0.3 % (0.0-2.0); EOSINOPHILS # 0.3 10^3/ul (0.0-0.5); EOSINOPHILS % 1.6 % (0.0-7.0); HEMATOCRIT 31.1 % (42.0-52.0); LYMPHOCYTES # 1.4 10^3/ul (0.8-2.9); LYMPHOCYTES % 8.9 % (15.0-51.0); MEAN CORPUSCULAR HEMOGLOBIN 30.8 pg (29.0-33.0); MEAN CORPUSCULAR HGB CONC 32.2 g/dl (32.0-37.0); MEAN CORPUSCULAR VOLUME 95.7 fl (82.0-101.0); MEAN PLATELET VOLUME 11.1 fl (7.4-10.4); MONOCYTE # 1.5 10^3/ul (0.3-0.9); MONOCYTES % 9.3 % (0.0-11.0); NEUTROPHIL # 12.3 10^3/ul (1.6-7.5); NEUTROPHILS % 78.1 % (39.0-77.0); PLATELET COUNT 395 10^3/UL (140-415); RED BLOOD COUNT 3.25 10^6/ul (4.70-6.10); RED CELL DISTRIBUTION WIDTH 14.2 % (11.5-14.5)
[2018-06-14 10:43] LABS: WHITE BLOOD COUNT 15.8 10^3/ul (4.8-10.8)
[2018-06-14] MEDS: IPRATROPIUM (NEB) 0.5 MG/2.5 ML AMP INH (10:46)
[2018-06-14] MEDS: ALBUTEROL 0.5% (NEB) 2.5 MG/0.5 ML AMP INH (10:46)
[2018-06-14 10:50] LABS: ALANINE AMINOTRANSFERASE 86 IU/L (13-69); ALBUMIN 3.5 g/dl (3.3-4.9); ALBUMIN/GLOBULIN RATIO 0.87; ALKALINE PHOSPHATASE 161 IU/L (42-121); AMYLASE 80 U/L (11-123); ANION GAP 11 (5-13); ASPARTATE AMINO TRANSFERASE 84 IU/L (15-46); BLOOD UREA NITROGEN 37 mg/dl (7-20); CARBON DIOXIDE 25 mmol/L (21-31); CHLORIDE 99 mmol/L (97-110); GLUCOSE 169 mg/dl (70-220); LIPASE 132 U/L (23-300); POTASSIUM 4.7 mmol/L (3.5-5.1); SODIUM 135 mmol/L (135-144); TOTAL PROTEIN 7.5 g/dl (6.1-8.1)
[2018-06-14 11:02] LABS: INR 1.15; PROTIME 14.8 Sec (11.9-14.9); PT RATIO 1.2; TROPONIN-I < 0.012 ng/ml (0.000-0.120)
[2018-06-14 11:03] LABS: PARTIAL THROMBOPLASTIN TIME 32.6 Sec (23.0-35.0)
[2018-06-14] MEDS: CEFEPIME 2GM/50 ML (PMX) 50 ML IVPB (11:06)
[2018-06-14 11:36] LABS: AADO2 Arterial 289.7 mmHg (7.0-24.0); Allen Test ACCEPTAB; Arterial Base Excess 0.4 mmol/L (-3.0-3); Arterial Blood Gas Oxygen Sat 97.2 mmHG (95.0-100.0); Arterial COHb 0.3 % (0.0-3.0); Arterial Fraction of Oxyhgb 96.6 % (93.0-99.0); Arterial HCO3 25.2 mmol/L (22.0-26.0); Arterial MetHb 0.3 % (0.0-1.5); Arterial pCO2 41.4 mmhg (35-45); MODE MASK - SIMPLE; Site Right Radial
[2018-06-14] MEDS: VANCOMYCIN 1 GM (PMX) 250 ML IVPB (11:43)
[2018-06-14] MEDS ORDERED: ONDANSETRON 4 MG INJ IV (12:00)
[2018-06-14] MEDS ORDERED: ACETAMINOPHEN 325 MG TAB PO (12:00)
[2018-06-14] MEDS ORDERED: ACETAMINOPHEN 325 MG TAB GTB (12:30)
[2018-06-14] MEDS ORDERED: ONDANSETRON 4 MG TAB GTB (12:30)
[2018-06-14] MEDS ORDERED: DOCUSATE SODIUM 10 MG/ML (10ML CUP) GTB (12:30)
[2018-06-14 12:50] LABS: ADD UMIC YES; UR ASCORBIC ACID 40 mg/dL (NEGATIVE); UR BILIRUBIN (Dip) NEGATIVE (NEGATIVE); UR BLOOD (Dip) NEGATIVE (NEGATIVE); UR CLARITY CLEAR (CLEAR); UR COLOR YELLOW (YELLOW); UR GLUCOSE (Dip) NEGATIVE (NEGATIVE); UR KETONES (Dip) NEGATIVE (NEGATIVE); UR LEUKOCYTE ESTERASE (Dip) NEGATIVE Leu/ul (NEGATIVE); UR NITRITE (Dip) NEGATIVE (NEGATIVE); UR RBC 1 /HPF (0-5); UR SPECIFIC GRAVITY (Dip) 1.019 (1.003-1.030); UR TOTAL PROTEIN (Dip) 1+ mg/dl (NEGATIVE); UR UROBILINOGEN (Dip) 1+ mg/dL (NEGATIVE); UR WBC 0 /HPF (0-5)
[2018-06-14 13:04] LABS: CREATININE,URINE RANDOM 62.36 mg/dl (20-370)
[2018-06-14 13:04] LABS: SODIUM,URINE RANDOM 95 mmol/L (30-90)
[2018-06-14] MEDS: HYDROCODONE/APAP (5/325) TAB GTB ×2 (13:29→22:33)
[2018-06-14] MEDS ORDERED: DILTIAZEM (SR) 60 MG CAP PO (14:00)
[2018-06-14] MEDS: ALBUTEROL/IPRATROPIUM (NEB) 3 ML AMP NEB (14:13)
[2018-06-14 15:51] LABS: LACTIC ACID 2.1 mmol/L (0.5-2.0)
[2018-06-14] MEDS: SOD CHLORIDE 0.9% 1,000 ML IV (16:38)
[2018-06-14] MEDS: ASCORBIC ACID 500 MG TAB GTB (22:22)
[2018-06-14] MEDS: CEFEPIME 1GM/50 ML (PMX) 50 ML IVPB (22:22)
[2018-06-14] MEDS: APIXABAN 5 MG TABLET GTB (22:23)
[2018-06-14 22:31] LABS: LACTIC ACID 1.3 mmol/L (0.5-2.0)
[2018-06-15 05:12] LABS: ADD MAN DIFF? NO
[2018-06-15 05:22] LABS: BASOPHIL # 0.1 10^3/ul (0.0-0.1); BASOPHILS % 0.4 % (0.0-2.0); EOSINOPHILS # 0.5 10^3/ul (0.0-0.5); HEMOGLOBIN 8.8 g/dl (14.0-18.0); LYMPHOCYTES # 1.5 10^3/ul (0.8-2.9); LYMPHOCYTES % 12.1 % (15.0-51.0); MEAN CORPUSCULAR HEMOGLOBIN 31.2 pg (29.0-33.0); MEAN CORPUSCULAR HGB CONC 32.6 g/dl (32.0-37.0); MEAN CORPUSCULAR VOLUME 95.7 fl (82.0-101.0); MEAN PLATELET VOLUME 10.5 fl (7.4-10.4); MONOCYTE # 1.1 10^3/ul (0.3-0.9); MONOCYTES % 8.9 % (0.0-11.0); NEUTROPHIL # 8.9 10^3/ul (1.6-7.5); NEUTROPHILS % 70.9 % (39.0-77.0); PLATELET COUNT 359 10^3/UL (140-415); RED BLOOD COUNT 2.82 10^6/ul (4.70-6.10); RED CELL DISTRIBUTION WIDTH 14.4 % (11.5-14.5)
[2018-06-15 05:22] LABS: WHITE BLOOD COUNT 12.5 10^3/ul (4.8-10.8)
[2018-06-15 05:42] LABS: ANION GAP 8 (5-13); BLOOD UREA NITROGEN 26 mg/dl (7-20); CALCIUM 8.9 mg/dl (8.4-10.2); CARBON DIOXIDE 24 mmol/L (21-31); CHLORIDE 104 mmol/L (97-110); GLUCOSE 90 mg/dl (70-220); MAGNESIUM 2.1 mg/dl (1.7-2.5); PHOSPHORUS 3.7 mg/dl (2.5-4.9); POTASSIUM 4.6 mmol/L (3.5-5.1); SODIUM 136 mmol/L (135-144)
[2018-06-15 08:26] LABS: IRON 34 ug/dl (35-150)
[2018-06-15 08:35] LABS: % IRON SATURATION 20 % SAT (22-52); TOTAL IRON BINDING CAPACITY 168 ug/dl (241-421)
[2018-06-15] MEDS ORDERED: FERROUS SULFATE 220 MG/5 ML ML GTB (09:00)
[2018-06-15] MEDS ORDERED: LANSOPRAZOLE 30 MG CAP GTB (09:00)
[2018-06-15] MEDS: FERROUS SULFATE 60 MG/ML 5ML CUP GTB (09:21)
[2018-06-15] MEDS: LANSOPRAZOLE 30 MG CAP GTB (09:21)
[2018-06-15] MEDS: APIXABAN 5 MG TABLET GTB ×2 (09:21→22:06)
[2018-06-15] MEDS: ZINC SULFATE 220 MG CAP GTB (09:21)
[2018-06-15] MEDS: CEFEPIME 1GM/50 ML (PMX) 50 ML IVPB ×2 (09:21→22:06)
[2018-06-15] MEDS: DIGOXIN 0.125 MG TAB GTB (09:22)
[2018-06-15] MEDS: AMIODARONE 200 MG TAB GTB (09:22)
[2018-06-15] MEDS: ASCORBIC ACID 500 MG TAB GTB ×2 (09:22→22:06)
[2018-06-15] MEDS: DILTIAZEM 30 MG TAB GTB ×3 (09:24→22:08)
[2018-06-15] MEDS: FUROSEMIDE 20 MG INJ IV (10:11)
[2018-06-15] MEDS: INFLUENZA VIRUS VACCINE 0.5 ML (DISPENSING) IM* (17:24)
[2018-06-16 05:39] LABS: ADD MAN DIFF? NO
[2018-06-16 05:43] LABS: WHITE BLOOD COUNT 14.2 10^3/ul (4.8-10.8)
[2018-06-16 05:43] LABS: ABNORMAL IP MESSAGE 1; BASOPHIL # 0.1 10^3/ul (0.0-0.1); BASOPHILS % 0.6 % (0.0-2.0); EOSINOPHILS # 0.3 10^3/ul (0.0-0.5); HEMATOCRIT 30.9 % (42.0-52.0); LYMPHOCYTES # 1.5 10^3/ul (0.8-2.9); LYMPHOCYTES % 10.2 % (15.0-51.0); MEAN CORPUSCULAR HEMOGLOBIN 30.6 pg (29.0-33.0); MEAN CORPUSCULAR HGB CONC 32.4 g/dl (32.0-37.0); MEAN CORPUSCULAR VOLUME 94.5 fl (82.0-101.0); MEAN PLATELET VOLUME 10.6 fl (7.4-10.4); MONOCYTE # 1.1 10^3/ul (0.3-0.9); NEUTROPHIL # 10.4 10^3/ul (1.6-7.5); NEUTROPHILS % 73.3 % (39.0-77.0); PLATELET COUNT 368 10^3/UL (140-415); POSITIVE DIFF @See below; RED BLOOD COUNT 3.27 10^6/ul (4.70-6.10); RED CELL DISTRIBUTION WIDTH 14.4 % (11.5-14.5)
[2018-06-16 06:16] LABS: ANION GAP 9 (5-13); BLOOD UREA NITROGEN 28 mg/dl (7-20); CALCIUM 9.3 mg/dl (8.4-10.2); CARBON DIOXIDE 23 mmol/L (21-31); CHLORIDE 102 mmol/L (97-110); CREATININE 0.61 mg/dl (0.61-1.24); GLUCOSE 127 mg/dl (70-220); PHOSPHORUS 3.2 mg/dl (2.5-4.9); POTASSIUM 4.6 mmol/L (3.5-5.1); SODIUM 134 mmol/L (135-144)
[2018-06-16] MEDS: FUROSEMIDE 20 MG INJ IV (06:29)
[2018-06-16] MEDS: DILTIAZEM 30 MG TAB GTB ×3 (06:29→20:28)
[2018-06-16] MEDS: CEFEPIME 1GM/50 ML (PMX) 50 ML IVPB ×2 (08:49→20:28)
[2018-06-16] MEDS: FERROUS SULFATE 60 MG/ML 5ML CUP GTB (08:52)
[2018-06-16] MEDS: DIGOXIN 0.125 MG TAB GTB (08:53)
[2018-06-16] MEDS: ASCORBIC ACID 500 MG TAB GTB ×2 (08:53→20:28)
[2018-06-16] MEDS: ZINC SULFATE 220 MG CAP GTB (08:53)
[2018-06-16] MEDS: APIXABAN 5 MG TABLET GTB ×2 (08:53→20:28)
[2018-06-16] MEDS: AMIODARONE 200 MG TAB GTB (08:53)
[2018-06-16] MEDS: LANSOPRAZOLE 30 MG CAP GTB (08:53)
[2018-06-16 08:55] LABS: ANISOCYTOSIS 1+ (0-0); BASOPHIL #M 0.1 10^3/ul (0.0-0.0); BASOPHILS % (M) 1 % (0-2); EOSINOPHILS % (M) 2 % (0-7); LYMPHOCYTES #M 1.4 10^3/ul (0.8-2.9); LYMPHOCYTES % (M) 10 % (15-51); MONOCYTE #M 0.8 10^3/ul (0.3-0.9); MONOCYTES % (M) 6 % (0-11); MYELOCYTES #M 0.4 10^3/ul (0.0-0.0); MYELOCYTES % (M) 3 % (0-0); PLATELET ESTIMATE NORMAL; POIKILOCYTOSIS 1+ (0-0); POLYCHROMASIA 3+ (0-0); SEGMENTED NEUTROPHILS (M) % 78 % (39-77); SMUDGE%M 4 % (0-0)
[2018-06-16] MEDS: HYDROCODONE/APAP (5/325) TAB GTB ×2 (14:21→20:27)
[2018-06-17] MEDS ORDERED: VITAMIN A & D 5 GM OINT PACKET TOP (04:09)
[2018-06-17] MEDS: DILTIAZEM 30 MG TAB GTB ×3 (05:02→20:19)
[2018-06-17] MEDS: FUROSEMIDE 20 MG INJ IV (05:02)
[2018-06-17 05:14] LABS: ADD MAN DIFF? NO
[2018-06-17 05:36] LABS: ABNORMAL IP MESSAGE 1; BASOPHIL # 0.1 10^3/ul (0.0-0.1); BASOPHILS % 0.8 % (0.0-2.0); EOSINOPHILS # 0.4 10^3/ul (0.0-0.5); EOSINOPHILS % 3.1 % (0.0-7.0); HEMATOCRIT 31.3 % (42.0-52.0); HEMOGLOBIN 9.9 g/dl (14.0-18.0); LYMPHOCYTES # 1.7 10^3/ul (0.8-2.9); LYMPHOCYTES % 14.6 % (15.0-51.0); MEAN CORPUSCULAR HEMOGLOBIN 30.4 pg (29.0-33.0); MEAN CORPUSCULAR HGB CONC 31.6 g/dl (32.0-37.0); MEAN PLATELET VOLUME 10.6 fl (7.4-10.4); MONOCYTE # 1.3 10^3/ul (0.3-0.9); MONOCYTES % 10.7 % (0.0-11.0); NEUTROPHIL # 7.3 10^3/ul (1.6-7.5); NEUTROPHILS % 62.4 % (39.0-77.0); NUCLEATED RED BLOOD CELLS% 0.2 /100WBC (0.0-0.0); PLATELET COUNT 331 10^3/UL (140-415); POSITIVE DIFF @See below; RED BLOOD COUNT 3.26 10^6/ul (4.70-6.10); RED CELL DISTRIBUTION WIDTH 14.5 % (11.5-14.5)
[2018-06-17 05:36] LABS: WHITE BLOOD COUNT 11.7 10^3/ul (4.8-10.8)
[2018-06-17 05:59] LABS: ANION GAP 9 (5-13); BLOOD UREA NITROGEN 31 mg/dl (7-20); CARBON DIOXIDE 24 mmol/L (21-31); CHLORIDE 100 mmol/L (97-110); CREATININE 0.64 mg/dl (0.61-1.24); GLUCOSE 112 mg/dl (70-220); MAGNESIUM 1.9 mg/dl (1.7-2.5); PHOSPHORUS 3.8 mg/dl (2.5-4.9); POTASSIUM 5.1 mmol/L (3.5-5.1); SODIUM 133 mmol/L (135-144)
[2018-06-17 07:44] LABS: BAND NEUTROPHILS #M 0.2 10^3/ul (0.0-0.6); BAND NEUTROPHILS % (M) 2 % (0-4); BURR CELLS 1+ (0-0); EOSINOPHILS % (M) 3 % (0-7); GIANT THROMBO% (M) 1 % (0-0); LYMPHOCYTES #M 1.4 10^3/ul (0.8-2.9); LYMPHOCYTES % (M) 12 % (15-51); MONOCYTE #M 0.7 10^3/ul (0.3-0.9); MONOCYTES % (M) 6 % (0-11); PLATELET ESTIMATE NORMAL; POIKILOCYTOSIS 1+ (0-0); POLYCHROMASIA 1+ (0-0); SEGMENTED NEUTROPHILS (M) % 77 % (39-77); SMUDGE%M 3 % (0-0)
[2018-06-17] MEDS: FERROUS SULFATE 60 MG/ML 5ML CUP GTB (08:47)
[2018-06-17] MEDS: AMIODARONE 200 MG TAB GTB (08:47)
[2018-06-17] MEDS: ASCORBIC ACID 500 MG TAB GTB ×2 (08:47→20:18)
[2018-06-17] MEDS: APIXABAN 5 MG TABLET GTB ×2 (08:47→20:18)
[2018-06-17] MEDS: LANSOPRAZOLE 30 MG CAP GTB (08:47)
[2018-06-17] MEDS: CEFEPIME 1GM/50 ML (PMX) 50 ML IVPB ×2 (08:47→20:19)
[2018-06-17] MEDS: ZINC SULFATE 220 MG CAP GTB (08:48)
[2018-06-17] MEDS: DIGOXIN 0.125 MG TAB GTB (08:48)
[2018-06-17] MEDS: DOXYCYCLINE 100 MG in SOD CHLORIDE 0.9% 250 ML IVPB ×2 (16:48→21:17)
[2018-06-17] MEDS: HYDROCODONE/APAP (5/325) TAB GTB (20:18)
[2018-06-17] MEDS: MUPIROCIN 2% 22 GM OINT TOP (21:16)
[2018-06-18] MEDS: DILTIAZEM 30 MG TAB GTB ×2 (04:47→13:51)
[2018-06-18] MEDS: HYDROCODONE/APAP (5/325) TAB GTB (04:47)
[2018-06-18] MEDS: FUROSEMIDE 20 MG INJ IV (04:47)
[2018-06-18] MEDS: LANSOPRAZOLE 30 MG CAP GTB (09:53)
[2018-06-18] MEDS: AMIODARONE 200 MG TAB GTB (09:53)
[2018-06-18] MEDS: APIXABAN 5 MG TABLET GTB (09:53)
[2018-06-18] MEDS: DIGOXIN 0.125 MG TAB GTB (09:53)
[2018-06-18] MEDS: FERROUS SULFATE 60 MG/ML 5ML CUP GTB (09:54)
[2018-06-18] MEDS: MUPIROCIN 2% 22 GM OINT TOP (09:54)
[2018-06-18] MEDS: ASCORBIC ACID 500 MG TAB GTB (09:54)
[2018-06-18] MEDS: CEFEPIME 1GM/50 ML (PMX) 50 ML IVPB (09:54)
[2018-06-18] MEDS: ZINC SULFATE 220 MG CAP GTB (10:05)
[2018-06-18] MEDS: DOXYCYCLINE 100 MG in SOD CHLORIDE 0.9% 250 ML IVPB (10:48)
[2018-06-18 15:32] LABS: CREATININE, RANDOM URINE 58 mg/dL (20-320); MICROALBUMIN 2.8 mg/dL; MICROALBUMIN/CREATININE RATIO 48 (<30)
== END 2018-06-18 21:03 | DRG 871 ==
LOC: E/R 09:43 → 6WM 11:35
PROVIDERS: Internal Medicine
DX: A41.9 Sepsis, unspecified organism (principal); J69.0 Pneumonitis due to inhalation of food and vomit; J96.01 Acute respiratory failure with hypoxia; G92 Toxic encephalopathy; I48.0 Paroxysmal atrial fibrillation; I11.0 Hypertensive heart disease with heart failure; R13.10 Dysphagia, unspecified; I50.9 Heart failure, unspecified; Z93.1 Gastrostomy status; F03.90 Unspecified dementia, unspecified severity, without behavioral disturbance, psychotic disturbance, mood disturbance, and anxiety; D50.9 Iron deficiency anemia, unspecified; I25.10 Atherosclerotic heart disease of native coronary artery without angina pectoris; Z66 Do not resuscitate; Z79.01 Long term (current) use of anticoagulants
CPT/HCPCS: 36415; 36600; 71045; 80048; 80053; 81001; 81003; 82043; 82150; 82728; 82803; 83540; 83605; 83690; 83735; 84100; 84155; 84300; 84484; 85025; 85610; 85730; 87040; 87045; 87081; 87086; 87400; 90686; 93005; 94644; 94664; 96365; 96375; 99291-25

== ENCOUNTER 2018-07-11 11:56 | Inpatient (IN) | payer MEDICARE, OTHER ==
[2018-07-11] MEDS: CEFEPIME 2GM/50 ML (PMX) 50 ML IVPB (12:35)
[2018-07-11] MEDS: SODIUM CHLORIDE 0.9% 1L BAG IV* (12:35)
[2018-07-11 12:41] LABS: ADD MAN DIFF? NO
[2018-07-11 13:00] LABS: BASOPHIL # 0.1 10^3/ul (0.0-0.1); BASOPHILS % 0.3 % (0.0-2.0); EOSINOPHILS # 0.1 10^3/ul (0.0-0.5); EOSINOPHILS % 0.6 % (0.0-7.0); HEMATOCRIT 34.4 % (42.0-52.0); HEMOGLOBIN 10.7 g/dl (14.0-18.0); LYMPHOCYTES # 1.5 10^3/ul (0.8-2.9); LYMPHOCYTES % 9.7 % (15.0-51.0); MEAN CORPUSCULAR HEMOGLOBIN 30.3 pg (29.0-33.0); MEAN CORPUSCULAR HGB CONC 31.1 g/dl (32.0-37.0); MEAN CORPUSCULAR VOLUME 97.5 fl (82.0-101.0); MEAN PLATELET VOLUME 11.2 fl (7.4-10.4); MONOCYTE # 0.6 10^3/ul (0.3-0.9); MONOCYTES % 3.7 % (0.0-11.0); NEUTROPHIL # 13.5 10^3/ul (1.6-7.5); NEUTROPHILS % 84.8 % (39.0-77.0); PLATELET COUNT 305 10^3/UL (140-415); RED BLOOD COUNT 3.53 10^6/ul (4.70-6.10); RED CELL DISTRIBUTION WIDTH 16.3 % (11.5-14.5)
[2018-07-11 13:00] LABS: WHITE BLOOD COUNT 15.9 10^3/ul (4.8-10.8)
[2018-07-11 13:02] LABS: ALANINE AMINOTRANSFERASE 37 IU/L (13-69); ALBUMIN 3.7 g/dl (3.3-4.9); ALBUMIN/GLOBULIN RATIO 0.84; ALKALINE PHOSPHATASE 123 IU/L (42-121); ANION GAP 12 (5-13); ASPARTATE AMINO TRANSFERASE 43 IU/L (15-46); BILIRUBIN,INDIRECT 0.4 mg/dl (0-1.1); BILIRUBIN,TOTAL 0.4 mg/dl (0.2-1.3); BLOOD UREA NITROGEN 31 mg/dl (7-20); CALCIUM 9.3 mg/dl (8.4-10.2); CARBON DIOXIDE 29 mmol/L (21-31); CHLORIDE 98 mmol/L (97-110); CREATININE 0.91 mg/dl (0.61-1.24); GLUCOSE 131 mg/dl (70-220); INR 1.13; POTASSIUM 4.8 mmol/L (3.5-5.1); PROTIME 14.6 Sec (11.9-14.9); PT RATIO 1.1; SODIUM 139 mmol/L (135-144); TOTAL PROTEIN 8.1 g/dl (6.1-8.1)
[2018-07-11 13:03] LABS: PARTIAL THROMBOPLASTIN TIME 29.5 Sec (23.0-35.0)
[2018-07-11 13:13] LABS: AADO2 Arterial 315.2 mmHg (7.0-24.0); Allen Test ACCEPTAB; Arterial Base Excess 2.7 mmol/L (-3.0-3); Arterial COHb 0.1 % (0.0-3.0); Arterial Fraction of Oxyhgb 94.5 % (93.0-99.0); Arterial HCO3 26.5 mmol/L (22.0-26.0); Arterial MetHb 0.4 % (0.0-1.5); Arterial pCO2 38.1 mmhg (35-45); MODE MASK - SIMPLE; Site Right Radial
[2018-07-11] MEDS: ACETAMINOPHEN 650MG/20.3ML CUP GTB (13:13)
[2018-07-11 13:14] LABS: TROPONIN-I < 0.012 ng/ml (0.000-0.120)
[2018-07-11] MEDS: VANCOMYCIN 1 GM (PMX) 250 ML IVPB (13:14)
[2018-07-11 13:39] LABS: ADD UMIC NO; UR ASCORBIC ACID 40 mg/dL (NEGATIVE); UR BILIRUBIN (Dip) NEGATIVE (NEGATIVE); UR BLOOD (Dip) NEGATIVE (NEGATIVE); UR CLARITY CLEAR (CLEAR); UR COLOR YELLOW (YELLOW); UR GLUCOSE (Dip) NEGATIVE (NEGATIVE); UR KETONES (Dip) NEGATIVE (NEGATIVE); UR LEUKOCYTE ESTERASE (Dip) NEGATIVE Leu/ul (NEGATIVE); UR NITRITE (Dip) NEGATIVE (NEGATIVE); UR SPECIFIC GRAVITY (Dip) 1.016 (1.003-1.030); UR TOTAL PROTEIN (Dip) NEGATIVE (NEGATIVE); UR UROBILINOGEN (Dip) NEGATIVE (NEGATIVE)
[2018-07-11] MEDS ORDERED: ACETAMINOPHEN 325 MG TAB PO (16:00)
[2018-07-11] MEDS ORDERED: ONDANSETRON 4 MG INJ IV (16:00)
[2018-07-11] MEDS ORDERED: DOCUSATE SODIUM 10 MG/ML (10ML CUP) GTB (16:30)
[2018-07-11] MEDS ORDERED: VANCOMYCIN IV PER PHARMACY XX (16:30)
[2018-07-11] MEDS ORDERED: ONDANSETRON 4 MG TAB GTB (16:30)
[2018-07-11] MEDS: DEXTROSE 5%-0.9% NACL 1,000 ML IV (17:00)
[2018-07-11 17:14] LABS: LACTIC ACID 2.5 mmol/L (0.5-2.0)
[2018-07-11] MEDS: APIXABAN 5 MG TABLET GTB (21:26)
[2018-07-11] MEDS: ASCORBIC ACID 500 MG TAB GTB (21:26)
[2018-07-11] MEDS: DILTIAZEM 30 MG TAB PO (21:27)
[2018-07-11] MEDS: CEFEPIME 1GM/50 ML (PMX) 50 ML IVPB (21:28)
[2018-07-11] MEDS ORDERED: DILTIAZEM (SR) 60 MG CAP PO (22:00)
[2018-07-11] MEDS: VANCOMYCIN 1 GM 250 ML IVPB (22:56)
[2018-07-12] MEDS: ALBUTEROL/IPRATROPIUM (NEB) 3 ML AMP NEB (04:57)
[2018-07-12] MEDS: DILTIAZEM 30 MG TAB PO ×3 (05:41→23:11)
[2018-07-12 06:11] LABS: WHITE BLOOD COUNT 18.5 10^3/ul (4.8-10.8)
[2018-07-12 06:11] LABS: HEMATOCRIT 28.4 % (42.0-52.0); HEMOGLOBIN 8.9 g/dl (14.0-18.0); MEAN CORPUSCULAR HEMOGLOBIN 31.2 pg (29.0-33.0); MEAN CORPUSCULAR HGB CONC 31.3 g/dl (32.0-37.0); MEAN CORPUSCULAR VOLUME 99.6 fl (82.0-101.0); MEAN PLATELET VOLUME 11.5 fl (7.4-10.4); PLATELET COUNT 224 10^3/UL (140-415); POSITIVE DIFF @See below; RED BLOOD COUNT 2.85 10^6/ul (4.70-6.10); RED CELL DISTRIBUTION WIDTH 16.6 % (11.5-14.5)
[2018-07-12 06:18] LABS: ADD MAN DIFF? YES; ANION GAP 8 (5-13); BLOOD UREA NITROGEN 25 mg/dl (7-20); CALCIUM 8.7 mg/dl (8.4-10.2); CARBON DIOXIDE 26 mmol/L (21-31); CHLORIDE 106 mmol/L (97-110); CREATININE 0.71 mg/dl (0.61-1.24); GLUCOSE 101 mg/dl (70-220); MAGNESIUM 2.1 mg/dl (1.7-2.5); PHOSPHORUS 2.8 mg/dl (2.5-4.9); POTASSIUM 4.5 mmol/L (3.5-5.1); SODIUM 140 mmol/L (135-144)
[2018-07-12] MEDS: DEXTROSE 5%-0.9% NACL 1,000 ML IV ×2 (06:20→18:36)
[2018-07-12 07:48] LABS: ANISOCYTOSIS 1+ (0-0); BAND NEUTROPHILS #M 6.1 10^3/ul (0.0-0.6); BAND NEUTROPHILS % (M) 33 % (0-4); BASOPHIL #M 0.1 10^3/ul (0.0-0.0); BASOPHILS % (M) 1 % (0-2); EOSINOPHILS % (M) 1 % (0-7); GIANT THROMBO% (M) 2 % (0-0); LYMPHOCYTES #M 0.1 10^3/ul (0.8-2.9); LYMPHOCYTES % (M) 1 % (15-51); MONOCYTE #M 1.4 10^3/ul (0.3-0.9); MONOCYTES % (M) 8 % (0-11); PLATELET ESTIMATE NORMAL; POLYCHROMASIA 1+ (0-0); SEG NEUT #M 11.5 10^3/ul (1.6-7.5); SEGMENTED NEUTROPHILS (M) % 56 % (39-77)
[2018-07-12] MEDS: MULTIVITAMINS 30 ML CUP GTB (08:21)
[2018-07-12] MEDS: FERROUS SULFATE 60 MG/ML 5ML CUP GTB (08:21)
[2018-07-12] MEDS: CEFEPIME 1GM/50 ML (PMX) 50 ML IVPB (08:21)
[2018-07-12] MEDS: ZINC SULFATE 220 MG CAP GTB (08:22)
[2018-07-12] MEDS: AMIODARONE 200 MG TAB GTB (08:22)
[2018-07-12] MEDS: LANSOPRAZOLE 30 MG CAP GTB (08:22)
[2018-07-12] MEDS: APIXABAN 5 MG TABLET GTB ×2 (08:22→21:49)
[2018-07-12] MEDS: ASCORBIC ACID 500 MG TAB GTB ×2 (08:22→21:49)
[2018-07-12] MEDS: VANCOMYCIN 1 GM 250 ML IVPB ×2 (09:57→23:11)
[2018-07-12] MEDS: DIGOXIN 0.125 MG TAB GTB (13:10)
[2018-07-12 21:18] LABS: VANCOMYCIN,TROUGH 17.9 ug/ml (10.0-20.0)
[2018-07-12] MEDS: MEROPENEM 1 GM/50ML(PMX) 50 ML IVPB (21:48)
[2018-07-13] MEDS: DILTIAZEM 30 MG TAB PO ×3 (06:11→21:47)
[2018-07-13 06:51] LABS: DIGOXIN 0.6 ng/ml (1.0-2.0)
[2018-07-13 06:59] LABS: B-TYPE NATRIURETIC PEPTIDE 11400 PG/ML (0-450)
[2018-07-13 07:41] LABS: OCCULT BLOOD STOOL NEGATIVE (NEGATIVE)
[2018-07-13 08:34] LABS: FREE T4 (FREE THYROXINE) 1.61 ng/dl (0.85-1.93)
[2018-07-13] MEDS: AMIODARONE 200 MG TAB GTB (08:43)
[2018-07-13] MEDS: ZINC SULFATE 220 MG CAP GTB (08:43)
[2018-07-13] MEDS: FERROUS SULFATE 60 MG/ML 5ML CUP GTB (08:43)
[2018-07-13] MEDS: ASCORBIC ACID 500 MG TAB GTB ×2 (08:43→21:47)
[2018-07-13] MEDS: APIXABAN 5 MG TABLET GTB ×2 (08:43→21:47)
[2018-07-13] MEDS: MULTIVITAMINS 30 ML CUP GTB (08:44)
[2018-07-13] MEDS: MEROPENEM 1 GM/50ML(PMX) 50 ML IVPB ×2 (08:44→21:47)
[2018-07-13] MEDS: LANSOPRAZOLE 30 MG CAP GTB (08:44)
[2018-07-13 08:45] LABS: ADD MAN DIFF? NO
[2018-07-13 08:47] LABS: BASOPHILS % 0.2 % (0.0-2.0); EOSINOPHILS % 0.2 % (0.0-7.0); HEMATOCRIT 29.1 % (42.0-52.0); HEMOGLOBIN 9.1 g/dl (14.0-18.0); LYMPHOCYTES # 0.9 10^3/ul (0.8-2.9); LYMPHOCYTES % 5.6 % (15.0-51.0); MEAN CORPUSCULAR HEMOGLOBIN 31.4 pg (29.0-33.0); MEAN CORPUSCULAR HGB CONC 31.3 g/dl (32.0-37.0); MEAN CORPUSCULAR VOLUME 100.3 fl (82.0-101.0); MONOCYTES % 6.4 % (0.0-11.0); NEUTROPHILS % 86.7 % (39.0-77.0); PLATELET COUNT 196 10^3/UL (140-415); RED CELL DISTRIBUTION WIDTH 16.3 % (11.5-14.5)
[2018-07-13 08:47] LABS: WHITE BLOOD COUNT 16.2 10^3/ul (4.8-10.8)
[2018-07-13 09:07] LABS: ANION GAP 4 (5-13); BLOOD UREA NITROGEN 19 mg/dl (7-20); CALCIUM 8.8 mg/dl (8.4-10.2); CARBON DIOXIDE 24 mmol/L (21-31); CHLORIDE 110 mmol/L (97-110); CREATININE 0.55 mg/dl (0.61-1.24); GLUCOSE 131 mg/dl (70-220); POTASSIUM 4.4 mmol/L (3.5-5.1); SODIUM 138 mmol/L (135-144)
[2018-07-13 09:13] LABS: LACTIC ACID 1.1 mmol/L (0.5-2.0)
[2018-07-13] MEDS: VANCOMYCIN 1 GM 250 ML IVPB (10:09)
[2018-07-13] MEDS: ALBUTEROL/IPRATROPIUM (NEB) 3 ML AMP NEB (11:12)
[2018-07-13] MEDS: DIGOXIN 0.125 MG TAB GTB (13:16)
[2018-07-14 06:20] LABS: ADD MAN DIFF? NO
[2018-07-14 06:27] LABS: WHITE BLOOD COUNT 19.2 10^3/ul (4.8-10.8)
[2018-07-14 06:27] LABS: BASOPHILS % 0.2 % (0.0-2.0); EOSINOPHILS % 0.1 % (0.0-7.0); HEMATOCRIT 32.6 % (42.0-52.0); LYMPHOCYTES # 0.8 10^3/ul (0.8-2.9); LYMPHOCYTES % 4.3 % (15.0-51.0); MEAN CORPUSCULAR HEMOGLOBIN 31.1 pg (29.0-33.0); MEAN CORPUSCULAR HGB CONC 30.7 g/dl (32.0-37.0); MEAN CORPUSCULAR VOLUME 101.2 fl (82.0-101.0); MEAN PLATELET VOLUME 11.4 fl (7.4-10.4); MONOCYTE # 1.5 10^3/ul (0.3-0.9); MONOCYTES % 7.6 % (0.0-11.0); NEUTROPHIL # 16.6 10^3/ul (1.6-7.5); NEUTROPHILS % 86.5 % (39.0-77.0); PLATELET COUNT 237 10^3/UL (140-415); RED BLOOD COUNT 3.22 10^6/ul (4.70-6.10); RED CELL DISTRIBUTION WIDTH 15.9 % (11.5-14.5)
[2018-07-14] MEDS: DILTIAZEM 30 MG TAB PO ×3 (06:40→22:33)
[2018-07-14 07:06] LABS: ANION GAP 7 (5-13); BLOOD UREA NITROGEN 18 mg/dl (7-20); CALCIUM 9.4 mg/dl (8.4-10.2); CARBON DIOXIDE 30 mmol/L (21-31); CHLORIDE 102 mmol/L (97-110); CREATININE 0.51 mg/dl (0.61-1.24); GLUCOSE 142 mg/dl (70-220); PHOSPHORUS 2.8 mg/dl (2.5-4.9); POTASSIUM 4.7 mmol/L (3.5-5.1); SODIUM 139 mmol/L (135-144)
[2018-07-14] MEDS: APIXABAN 5 MG TABLET GTB ×2 (09:17→20:08)
[2018-07-14] MEDS: ZINC SULFATE 220 MG CAP GTB (09:17)
[2018-07-14] MEDS: FERROUS SULFATE 60 MG/ML 5ML CUP GTB (09:17)
[2018-07-14] MEDS: AMIODARONE 200 MG TAB GTB (09:17)
[2018-07-14] MEDS: LANSOPRAZOLE 30 MG CAP GTB (09:17)
[2018-07-14] MEDS: ASCORBIC ACID 500 MG TAB GTB ×2 (09:17→20:08)
[2018-07-14] MEDS: MULTIVITAMINS 30 ML CUP GTB (09:17)
[2018-07-14] MEDS: MEROPENEM 1 GM/50ML(PMX) 50 ML IVPB ×2 (09:18→20:08)
[2018-07-14] MEDS: VANCOMYCIN HCL 1.25 GM in SOD CHLORIDE 0.9% 250 ML IVPB (10:24)
[2018-07-14] MEDS: DIGOXIN 0.125 MG TAB GTB (14:27)
[2018-07-14] MEDS: ACETAMINOPHEN 650MG/20.3ML CUP GTB (14:28)
[2018-07-14] MEDS: ALBUTEROL/IPRATROPIUM (NEB) 3 ML AMP NEB (20:44)
[2018-07-15] MEDS: ALBUTEROL/IPRATROPIUM (NEB) 3 ML AMP NEB ×3 (04:58→21:47)
[2018-07-15] MEDS: DILTIAZEM 30 MG TAB PO ×3 (05:50→22:00)
[2018-07-15 06:32] LABS: ADD MAN DIFF? NO
[2018-07-15 06:50] LABS: ABNORMAL IP MESSAGE 1; BASOPHIL # 0.1 10^3/ul (0.0-0.1); BASOPHILS % 0.3 % (0.0-2.0); EOSINOPHILS # 0.2 10^3/ul (0.0-0.5); HEMATOCRIT 31.1 % (42.0-52.0); HEMOGLOBIN 9.4 g/dl (14.0-18.0); LYMPHOCYTES # 1.7 10^3/ul (0.8-2.9); LYMPHOCYTES % 11.3 % (15.0-51.0); MEAN CORPUSCULAR HEMOGLOBIN 30.8 pg (29.0-33.0); MEAN CORPUSCULAR HGB CONC 30.2 g/dl (32.0-37.0); MEAN PLATELET VOLUME 11.7 fl (7.4-10.4); MONOCYTE # 1.5 10^3/ul (0.3-0.9); MONOCYTES % 10.2 % (0.0-11.0); NEUTROPHIL # 11.5 10^3/ul (1.6-7.5); NEUTROPHILS % 76.2 % (39.0-77.0); PLATELET COUNT 211 10^3/UL (140-415); POSITIVE DIFF @See below; RED BLOOD COUNT 3.05 10^6/ul (4.70-6.10); RED CELL DISTRIBUTION WIDTH 15.8 % (11.5-14.5)
[2018-07-15 07:26] LABS: ANION GAP 9 (5-13); BLOOD UREA NITROGEN 28 mg/dl (7-20); CALCIUM 9.1 mg/dl (8.4-10.2); CARBON DIOXIDE 30 mmol/L (21-31); CHLORIDE 103 mmol/L (97-110); CREATININE 0.54 mg/dl (0.61-1.24); GLUCOSE 116 mg/dl (70-220); PHOSPHORUS 2.1 mg/dl (2.5-4.9); POTASSIUM 4.8 mmol/L (3.5-5.1); SODIUM 142 mmol/L (135-144)
[2018-07-15 08:15] LABS: AADO2 Arterial 453.8 mmHg (7.0-24.0); Allen Test ACCEPTAB; Arterial Base Excess 3.9 mmol/L (-3.0-3); Arterial Blood Gas Oxygen Sat 99.4 mmHG (95.0-100.0); Arterial COHb 0.3 % (0.0-3.0); Arterial Fraction of Oxyhgb 98.8 % (93.0-99.0); Arterial HCO3 28.5 mmol/L (22.0-26.0); Arterial MetHb 0.3 % (0.0-1.5); Arterial pCO2 43.2 mmhg (35-45); MODE MASK - NRB; Site Right Radial
[2018-07-15] MEDS: FERROUS SULFATE 60 MG/ML 5ML CUP GTB (08:26)
[2018-07-15] MEDS: LANSOPRAZOLE 30 MG CAP GTB (08:26)
[2018-07-15] MEDS: ZINC SULFATE 220 MG CAP GTB (08:26)
[2018-07-15] MEDS: MULTIVITAMINS 30 ML CUP GTB (08:26)
[2018-07-15] MEDS: ASCORBIC ACID 500 MG TAB GTB ×2 (08:26→21:41)
[2018-07-15] MEDS: MEROPENEM 1 GM/50ML(PMX) 50 ML IVPB ×2 (08:27→21:41)
[2018-07-15] MEDS: AMIODARONE 200 MG TAB GTB (08:27)
[2018-07-15] MEDS: APIXABAN 5 MG TABLET GTB ×2 (08:27→21:41)
[2018-07-15] MEDS: BALSAM PERU/CASTOR OIL 60 GM TUBE TOP ×2 (08:57→23:29)
[2018-07-15] MEDS: VANCOMYCIN HCL 1.25 GM in SOD CHLORIDE 0.9% 250 ML IVPB (09:58)
[2018-07-15] MEDS: DIGOXIN 0.125 MG TAB GTB (13:02)
[2018-07-15 13:21] LABS: PROCALCITONIN 7.05 ng/mL (<0.10)
[2018-07-15] MEDS: FUROSEMIDE 40 MG INJ IV (22:30)
[2018-07-16] MEDS: ALBUTEROL/IPRATROPIUM (NEB) 3 ML AMP NEB (05:39)
[2018-07-16 06:07] LABS: ADD MAN DIFF? NO
[2018-07-16 06:12] LABS: WHITE BLOOD COUNT 13.5 10^3/ul (4.8-10.8)
[2018-07-16 06:12] LABS: ABNORMAL IP MESSAGE 1; BASOPHIL # 0.1 10^3/ul (0.0-0.1); BASOPHILS % 0.5 % (0.0-2.0); EOSINOPHILS # 0.2 10^3/ul (0.0-0.5); EOSINOPHILS % 1.6 % (0.0-7.0); HEMOGLOBIN 9.9 g/dl (14.0-18.0); LYMPHOCYTES # 1.1 10^3/ul (0.8-2.9); LYMPHOCYTES % 7.9 % (15.0-51.0); MEAN CORPUSCULAR HEMOGLOBIN 30.8 pg (29.0-33.0); MEAN CORPUSCULAR HGB CONC 30.9 g/dl (32.0-37.0); MEAN CORPUSCULAR VOLUME 99.7 fl (82.0-101.0); MEAN PLATELET VOLUME 10.5 fl (7.4-10.4); MONOCYTE # 1.5 10^3/ul (0.3-0.9); MONOCYTES % 11.3 % (0.0-11.0); NEUTROPHIL # 10.5 10^3/ul (1.6-7.5); NEUTROPHILS % 77.6 % (39.0-77.0); PLATELET COUNT 254 10^3/UL (140-415); POSITIVE DIFF @See below; RED BLOOD COUNT 3.21 10^6/ul (4.70-6.10); RED CELL DISTRIBUTION WIDTH 15.7 % (11.5-14.5)
[2018-07-16 06:37] LABS: ANION GAP 11 (5-13); BLOOD UREA NITROGEN 31 mg/dl (7-20); CALCIUM 9.4 mg/dl (8.4-10.2); CARBON DIOXIDE 32 mmol/L (21-31); CHLORIDE 101 mmol/L (97-110); CREATININE 0.74 mg/dl (0.61-1.24); GLUCOSE 136 mg/dl (70-220); MAGNESIUM 2.1 mg/dl (1.7-2.5); POTASSIUM 4.4 mmol/L (3.5-5.1); SODIUM 144 mmol/L (135-144)
[2018-07-16] MEDS: DILTIAZEM 30 MG TAB PO ×3 (06:37→21:44)
[2018-07-16] MEDS: AMIODARONE 200 MG TAB GTB (08:19)
[2018-07-16] MEDS: APIXABAN 5 MG TABLET GTB ×2 (08:19→21:34)
[2018-07-16] MEDS: ASCORBIC ACID 500 MG TAB GTB ×2 (08:19→21:34)
[2018-07-16] MEDS: MEROPENEM 1 GM/50ML(PMX) 50 ML IVPB (08:19)
[2018-07-16] MEDS: FERROUS SULFATE 60 MG/ML 5ML CUP GTB (08:19)
[2018-07-16] MEDS: ZINC SULFATE 220 MG CAP GTB (08:19)
[2018-07-16] MEDS: LANSOPRAZOLE 30 MG CAP GTB (08:19)
[2018-07-16] MEDS: ACETAMINOPHEN 650MG/20.3ML CUP GTB (08:20)
[2018-07-16] MEDS: MULTIVITAMINS 30 ML CUP GTB (08:21)
[2018-07-16] MEDS: BALSAM PERU/CASTOR OIL 60 GM TUBE TOP ×2 (08:23→21:35)
[2018-07-16] MEDS: NEUTRA-PHOS 250 MG PACKET GTB ×3 (10:14→21:34)
[2018-07-16] MEDS: VANCOMYCIN HCL 1.25 GM in SOD CHLORIDE 0.9% 250 ML IVPB (10:14)
[2018-07-16] MEDS: DIGOXIN 0.125 MG TAB GTB (14:10)
[2018-07-16] MEDS: TRIMETHOPRIM/SULFAMETHOXAZOLE 15 ML in DEXTROSE 5% 500 ML IVPB ×2 (15:39→22:11)
[2018-07-16] MEDS: CEFEPIME 1GM/50 ML (PMX) 50 ML IVPB (21:35)
== END 2018-07-17 00:23 | disposition short-term general hospital (02) | DRG 871 ==
LOC: 6WM 17:41 → E/R 11:56 → 6WM 15:51
DX: A41.9 Sepsis, unspecified organism (principal); J69.0 Pneumonitis due to inhalation of food and vomit; G92 Toxic encephalopathy; J96.21 Acute and chronic respiratory failure with hypoxia; E87.2 Acidosis; K94.23 Gastrostomy malfunction; R65.20 Severe sepsis without septic shock; I48.0 Paroxysmal atrial fibrillation; I25.10 Atherosclerotic heart disease of native coronary artery without angina pectoris; F03.90 Unspecified dementia, unspecified severity, without behavioral disturbance, psychotic disturbance, mood disturbance, and anxiety; R13.10 Dysphagia, unspecified; D64.9 Anemia, unspecified; I11.0 Hypertensive heart disease with heart failure; I50.9 Heart failure, unspecified; Z87.01 Personal history of pneumonia (recurrent)
CPT/HCPCS: 36600; 71045; 80048; 80053; 80162; 80202; 81003; 82270; 82803; 83605; 83735; 83880; 84100; 84134; 84145; 84439; 84443; 84484; 85025; 85610; 85730; 87040; 87045; 87070; 87081; 87086; 87400; 89220; 93005; 94640; 94664; 96365; 96375; 99291-25

== ENCOUNTER 2018-08-09 10:18 | Day surgery (SDC) | payer OTHER, MEDICARE ==
[2018-08-09] MEDS ORDERED: LIDOCAINE 2% (SDV) 5 ML INJ (12:21)
[2018-08-09] MEDS ORDERED: PROPOFOL 20 ML ×2 (12:21→13:15)
[2018-08-09] MEDS ORDERED: CEFAZOLIN 2 GM/50 ML (PMX) 0 ML IVPB (12:24)
[2018-08-09] MEDS ORDERED: LABETALOL HCL 20MG INJ IV (12:30)
[2018-08-09] MEDS ORDERED: hydrALAzine 20 MG INJ IV (12:30)
[2018-08-09] MEDS ORDERED: HYDROmorphONE 1 MG/5 ML IV SYRINGE IV (12:30)
[2018-08-09] MEDS ORDERED: EPHEDrine SULFATE 50 MG/5 ML SYG IV (12:30)
[2018-08-09] MEDS ORDERED: ONDANSETRON 4 MG INJ IV (12:30)
== END 2018-08-09 15:34 | disposition home or self-care (01) ==
LOC: GIL 10:18
DX: R13.14 Dysphagia, pharyngoesophageal phase (principal); I10 Essential (primary) hypertension; E11.9 Type 2 diabetes mellitus without complications; J44.9 Chronic obstructive pulmonary disease, unspecified
CPT/HCPCS: 49452; 82962